=== PATIENT | male | born 1975 | race Hispanic/Latino ===

== ENCOUNTER 2017-01-15 14:24 | Emergency (ER) | payer MEDICAID ==
[2017-01-15 14:24] VITALS: BMI 29.0
[2017-01-15 14:56] VITALS: RESP 20
[2017-01-15] MEDS ORDERED: Sodium Chloride 0.9% 1,000 ML IV STA (15:59)
[2017-01-15 16:56] LABS: BASO # 0.1 K/uL (0.0-0.2); BASO % 1.3 % (0.0-2.0); EOS # 0.3 K/uL (0.0-0.7); EOS % 2.8 % (0.0-4.0); HEMATOCRIT 39.1 % (35.0-51.0); LYMPH # 2.3 K/uL (1.0-4.3); LYMPH % 23.2 % (20.0-40.0); MEAN CORPUSCULAR HGB CONC 34.1 g/dL (33.0-37.0); MEAN PLATELET VOLUME 8.3 fl (7.2-11.7); MONO # 0.6 K/uL (0.0-0.8); MONO % 6.5 % (0.0-10.0); NEUT # 6.5 K/uL (1.8-7.0); NEUT % 66.2 % (50.0-75.0); NRBC % 0.2 % (0.0-0.0); RED CELL DISTRIBUTION WIDTH 13.2 % (11.5-14.5); WHITE BLOOD COUNT 9.7 K/uL (4.8-10.8)
[2017-01-15 17:14] LABS: ALKALINE PHOSPHATASE 90 U/L (38-126); ALT/SGPT 25 U/L (21-72); AST/SGOT 19 U/L (17-59); BILIRUBIN,TOTAL 0.4 mg/dl (0.2-1.3); BLOOD UREA NITROGEN 17 mg/dl (9-20); CALCIUM 9.4 mg/dL (8.4-10.2); CARBON DIOXIDE 19 mmol/L (22-30); CHLORIDE 106 mmol/L (98-107); GFR AFRICAN-AMERICAN > 60; GLUCOSE,RANDOM 173 mg/dL (75-110); LIPASE 186 U/L (23-300); POTASSIUM 4.1 MMOL/L (3.6-5.0); SODIUM 142 mmol/l (132-148); TOTAL PROTEIN 8.2 G/DL (6.3-8.2)
--- NOTE | 2017-01-15 17:31 | CT ---
PROCEDURE: CT Abdomen and Pelvis without intravenous contrast HISTORY: groin pain COMPARISON: Comparison is made to the previous study dated 02/17/2014 TECHNIQUE: Axial and reformatted coronal and sagittal CT images of the abdomen and pelvis were obtained without IV or oral contrast administration.. Contrast Dose: 0 Radiation dose: Total exam DLP = 1349.56 mGy-cm. FINDINGS: LOWER THORAX: No evidence of acute pathology. LIVER: Re- demonstration of mild hepatomegaly and mild hepatic steatosis. GALLBLADDER AND BILE DUCTS: Status post cholecystectomy. PANCREAS: Unremarkable. No gross lesion or ductal dilatation. SPLEEN: Unremarkable. ADRENALS: Unremarkable. No mass. KIDNEYS AND URETERS: Unremarkable. No hydronephrosis. No solid mass. VASCULATURE: There is IVC filter in place. . No aortic aneurysm. BOWEL: The patient is status post prior gastric sleeve surgery. No evidence of bowel obstruction. APPENDIX: No evidence of appendicitis. The appendix is not clearly visualized. PERITONEUM: Unremarkable. No free fluid. No free air. LYMPH NODES: Again seen are prominent internal iliac lymph nodes more on the left. No evidence of lymphadenopathy. BLADDER: Mild urinary bladder wall thickening. REPRODUCTIVE: Unremarkable. BONES: No acute fracture. OTHER FINDINGS: None. IMPRESSION: No CT evidence of acute pathology in the abdomen and pelvis. No evidence of nephrolithiasis or hydronephrosis. No evidence of significant interval change compared to the previous exam.
--- NOTE | 2017-01-15 17:49 | US ---
HISTORY: pain, right TECHNIQUE: Realtime sonography through the scrotum with color and doppler flow. COMPARISON: None Available. FINDINGS: RIGHT TESTICLE: Measures 4.9 x 2.2 x 3.3 cm. Homogeneous echotexture. Blood flow is demonstrated. RIGHT EPIDIDYMIS: Measures approximately 1.1 x 0.7 x 0.6 cm. LEFT TESTICLE: Measures 4.6 x 2.3 x 3.6 cm. Homogeneous echotexture. Blood flow is demonstrated. LEFT EPIDIDYMIS: Measures approximately 1.0 x 0.4 x 0.5 cm. HYDROCELE: None. VARICOCELE: None. OTHER FINDINGS: None. IMPRESSION: No acute findings.
[2017-01-15 17:51] LABS: RBC URINE 4 /hpf (0-3); URINE BILIRUBIN NEGATIVE (NEGATIVE); URINE BLOOD MODERATE (NEGATIVE); URINE COLOR YELLOW (YELLOW); URINE GLUCOSE (UA) NEG (Normal); URINE KETONE NEGATIVE (NEGATIVE); URINE LEUKOCYTE ESTERASE NEG Leu/uL (Negative); URINE PROTEIN 100 mg/dL (NEGATIVE); URINE UROBILINOGEN 0.2-1.0 mg/dL (0.2-1.0); WBC URINE 1 /hpf (0-5)
--- NOTE | 2017-01-15 18:11 | ED PDOC ---
HPI: Male Pain Time Seen by Provider: 01/15/17 15:30 Chief Complaint (Nursing): Groin Pain Chief Complaint (Provider): Right Sided Testicular Pain/Abdominal Pain/Back Pain History Per: Patient History/Exam Limitations: no limitations Onset/Duration Of Symptoms: Days (x2) Current Symptoms Are (Timing): Still Present Associated Symptoms: Back Pain Additional Complaint(s): 15:30 Waqar Cid is a 41 year old male that presents to the ED with a chief complaint of right sided testicular pain with associated radiating suprapubic abdominal pain and back pain that he has been experiencing for the past two days. Patient denies any urinary complaints along with vomiting, diarrhea, or chest pain, and states that he has never has this type of problem before. He denies any trauma to the testicles or abdomen, and says that he does not think that his testicles are swollen. PMD: Jamie Davalos Past Medical History Reviewed: Historical Data, Nursing Documentation, Vital Signs Vital Signs: Last Vital Signs Temp 98.0 F 01/15/17 14:55 Pulse 83 01/15/17 14:55 Resp 20 01/15/17 14:55 BP 151/74 H 01/15/17 14:55 Pulse Ox 96 01/15/17 14:55 - Medical History PMH: Anxiety, Back Problems, Bipolar Disorder, Depression, Diabetes, Deep Vein Thrombosis (left leg), HTN, Pancreatitis, Schizophrenia Denies: Anemia, Crohn's Disease, Hepatitis, HIV, Chronic Kidney Disease, Seizures, Sexually Transmitted Disease - Surgical History Surgical History: Appendectomy (2014), Cholecystectomy, Coronary Stent (2011 s/ p [place]), Hernia Repair (umbilical) - Family History Family History: States: Unknown Family Hx, Diabetes - Immunization History Hx Tetanus Toxoid Vaccination: Yes (03/31/14) Hx Influenza Vaccination: No Hx Pneumococcal Vaccination: No - Home Medications Home Medications: Ambulatory Orders Medication Instructions Recorded ALPRAZolam [Xanax] 1 mg PO TID 11/26/15 Clonazepam [Klonopin] 0.5 mg PO TID 11/26/15 DiphenhydrAMINE [Benadryl] 50 mg PO QID PRN 11/26/15 [employer] Carbonate [[employer] 300 mg PO BID 11/26/15 Carbonate 300MG] Gabapentin [Neurontin] 600 mg PO TID #90 tab 12/01/15 Haloperidol [Haldol] 10 mg PO BID #60 tab 12/01/15 clonazePAM [Klonopin] 0.5 mg PO BID #14 tab 12/01/15 Ibuprofen [Motrin] 400 mg PO Q6 #30 tab 09/08/16 Naproxen 500 mg PO BID #20 tab 01/15/17 - Allergies Allergies/Adverse Reactions: Allergies Allergy/AdvReac Type Severity Reaction Status Date / Time iodine Allergy Mild ITCHING Verified 01/15/17 14:54 FISH Allergy SWELLING Verified 01/15/17 14:54 lorazepam [From Ativan] AdvReac DIZZINESS Verified 01/15/17 14:54 salmon Allergy Severe SWELLING Uncoded 12/13/15 16:04 Review of Systems Cardiovascular: Negative for: Chest Pain Gastrointestinal: Positive for: Abdominal Pain. Negative for: Nausea, Vomiting Genitourinary Male: Positive for: Other (right sided testicular pain). Negative for: Dysuria Musculoskeletal: Positive for: Back Pain Physical Exam - Reviewed Nursing Documentation Reviewed: Yes Vital Signs Reviewed: Yes - Physical Exam Appears: Positive for: Non-toxic, No Acute Distress (patient is obese) Head Exam: Positive for: ATRAUMATIC, NORMOCEPHALIC Skin: Positive for: Normal Color, Warm Eye Exam: Positive for: Normal appearance, EOMI Cardiovascular/Chest: Positive for: Regular Rate, Rhythm. Negative for: Murmur Respiratory: Positive for: Normal Breath Sounds. Negative for: Respiratory Distress Pulses-Femoral (L): 2+ Pulses-Femoral (R): 2+ Gastrointestinal/Abdominal: Positive for: Tenderness (right groin tenderness) Male Genital Exam: Positive for: normal genitalia, epididymal tenderness (right epididymus), testicular tenderness (R) (right upper testicle), other (no crepitus or evidence for scrotal infection ). Negative for: erythema, inguinal tenderness, scrotum tenderness (R), scrotum tenderness (L), testicular tenderness (L) Back: Positive for: Normal Inspection Extremity: Positive for: Deformity (chronic deformity to left foot) Neurologic/Psych: Positive for: Alert, Oriented - Laboratory Results Result Diagrams: 01/15/17 16:20 01/15/17 16:20 - ECG O2 Sat by Pulse Oximetry: 96 (RA) Pulse Ox Interpretation: Normal Medical Decision Making Medical Decision Makin:55 Initial Impression: Right Sided Testicular Pain Initial Plan: * Urine Culture * Sodium Chloride 1000 mL at 1000 mLs/hr * Morphine 4 mg IVP * Toradol 30 mg IVP * Zofran 4 mg IVP * Reevaluation Scribe Attestation: Documented by Roxy Diaz, acting as a scribe for Angelito Dupont PA-C. Provider Scribe Attestation: All medical record entries made by the Scribe were at my direction and personally dictated by me. I have reviewed the chart and agree that the record accurately reflects my personal performance of the history, physical exam, medical decision making, and the department course for this patient. I have also personally directed, reviewed, and agree with the discharge instructions and disposition. labs with no acute finding glucose 174 hx of DM UA negative infection, (+) blood CT- IMPRESSION: No CT evidence of acute pathology in the abdomen and pelvis. No evidence of nephrolithiasis or hydronephrosis. No evidence of significant interval change compared to the previous exam US- IMPRESSION: No acute findings. discussed CT, US and lab results with patient. pain did improve discussed evaluation by urology for further evaluation discussed to check his groin- currently with no evidence of groin infection, but discussed that given DM he could be getting one and to make sure he continues to check for any scrotum swelling or redness. discussed with patient NSIAD use, no opiate pain medications for discharge given hx, he agrees. Disposition - Clinical Impression Clinical Impression: Groin pain, Testicular pain, Hematuria - Patient ED Disposition Is Patient to be Admitted: No Counseled Patient/Family Regarding: Studies Performed, Diagnosis, Need For Followup, Rx Given - Disposition Referrals: Uziel Meyer MD [Medical Doctor] - Disposition: Routine/Home Disposition Time: 19:10 Condition: IMPROVED Additional Instructions: follow up without fail for re-evaluation with urology continue to check your genital area and return for swelling, redness, masses to the groin or any new concerns Prescriptions: Naproxen 500 mg PO BID #20 tab Instructions: Groin Pain (ED), Testicle Pain (ED), Acute Hematuria (ED)
[2017-01-15 19:17] VITALS: BP 128/78; PULSE 78; TEMP 97.7
[2017-01-15 19:20] VITALS: O2SAT 96
== END 2017-01-15 19:17 | disposition home or self-care (01) ==
LOC: H.ER 14:24
DX: N50.82 Scrotal pain (principal); R31.9 Hematuria, unspecified

== ENCOUNTER 2017-03-26 17:19 | Emergency (ER) | payer MEDICAID ==
[2017-03-26 17:19] VITALS: BMI 29.0
[2017-03-26 17:23] VITALS: BP 151/87; PULSE 102; RESP 18; TEMP 98.5; O2SAT 100
--- NOTE | 2017-03-26 18:49 | ED PDOC ---
Lower Extremity Pain/Injury Time Seen by Provider: 03/26/17 17:58 Chief Complaint (Nursing): Lower Extremity Problem/Injury Chief Complaint (Provider): left leg pain History Per: Patient Additional Complaint(s): 41-year-old male with history of diabetes and bipolar disorder presents to emergency department complaining of swelling and pain to left leg that started 2 days ago. Patient states he has chronic pain to left knee which has been hurting moreso for the past 2 days but his main concern is persistent swelling and pain to left foot and ankle region. Patient denies injury or trauma. He has not been taking any medicine for pain relief. He describes the pain as a pins and needles sensation in foot. Patient rates current pain as a 10 out of 10. He has history of osteomyelitis to same foot. No associated chest pain, shortness of breath or dyspnea on exertion. Past Medical History Reviewed: Historical Data, Nursing Documentation, Vital Signs Vital Signs: Last Vital Signs Temp 98.5 F 03/26/17 17:21 Pulse 102 H 03/26/17 17:21 Resp 18 03/26/17 17:21 BP 151/87 H 03/26/17 17:21 Pulse Ox 100 03/26/17 17:21 - Medical History PMH: Anxiety, Back Problems, Bipolar Disorder, Depression, Diabetes, Deep Vein Thrombosis, HTN, Schizophrenia - Surgical History Surgical History: Appendectomy (2014), Cholecystectomy, Coronary Stent (2011 s/ p [place]), Hernia Repair (umbilical) Other surgeries: left foot surgery - Family History Family History: States: No Known Family Hx, Diabetes - Living Arrangements Living Arrangements: With Family - Social History Current smoker - smoking cessation education provided: No Alcohol: None Drugs: Denies - Immunization History Hx Tetanus Toxoid Vaccination: Yes (03/31/14) - Home Medications Home Medications: Ambulatory Orders Medication Instructions Recorded ALPRAZolam [Xanax] 1 mg PO TID 11/26/15 Clonazepam [Klonopin] 0.5 mg PO TID 11/26/15 DiphenhydrAMINE [Benadryl] 50 mg PO QID PRN 11/26/15 [employer] Carbonate [[employer] 300 mg PO BID 11/26/15 Carbonate 300MG] Gabapentin [Neurontin] 600 mg PO TID #90 tab 12/01/15 Haloperidol [Haldol] 10 mg PO BID #60 tab 12/01/15 clonazePAM [Klonopin] 0.5 mg PO BID #14 tab 12/01/15 Ibuprofen [Motrin] 400 mg PO Q6 #30 tab 09/08/16 Naproxen 500 mg PO BID #20 tab 01/15/17 Clindamycin [Cleocin] 300 mg PO TID #21 cap 03/26/17 Ibuprofen [Motrin] 600 mg PO Q6 PRN #15 tab 03/26/17 traMADol [Ultram] 50 mg PO TID PRN #15 tab 03/26/17 - Allergies Allergies/Adverse Reactions: Allergies Allergy/AdvReac Type Severity Reaction Status Date / Time iodine Allergy Mild ITCHING Verified 01/15/17 14:54 FISH Allergy SWELLING Verified 01/15/17 14:54 lorazepam [From Ativan] AdvReac DIZZINESS Verified 01/15/17 14:54 salmon Allergy Severe SWELLING Uncoded 12/13/15 16:04 Wells Criteria for PE - Wells Criteria for Pulmonary Embolism Clinical Signs and Symptoms of DVT: Yes P.E is #1 Diagnosis, or Equally Likely: No Heart Rate >100: No Immobilization at least 3 days;Surgery previous 4 weeks: No Previous, objectively diagnosed PE or DVT: No Hemoptysis: No Malignancy w/treatment within 6 months, or palliative: No Total Score: 3 Review of Systems ROS Statement: Except As Marked, All Systems Reviewed And Found Negative Constitutional: Negative for: Fever, Chills Cardiovascular: Negative for: Chest Pain Respiratory: Negative for: Cough Gastrointestinal: Negative for: Nausea, Vomiting Musculoskeletal: Positive for: Foot Pain (left foot pain and swelling) Physical Exam - Reviewed Nursing Documentation Reviewed: Yes Vital Signs Reviewed: Yes - Physical Exam Appears: Positive for: Well, Non-toxic, No Acute Distress Skin: Negative for: Rash Eye Exam: Positive for: Normal appearance Cardiovascular/Chest: Positive for: Regular Rate, Rhythm Respiratory: Positive for: Normal Breath Sounds. Negative for: Respiratory Distress Extremity: Positive for: Other (chronic deformity to toes of left foot, diffuse erythema, swelling and tenderness to left foot and ankle region with mild warmth to palpation, mild swelling and tenderness to left calf also noted, full range of motion of left knee with pain, effusion noted to left suprapatellar region, no warmth or erythema to left knee region) Neurologic/Psych: Positive for: Alert, Oriented - Laboratory Results Result Diagrams: 03/26/17 19:18 06/02/17 19:18 - ECG O2 Sat by Pulse Oximetry: 100 Pulse Ox Interpretation: Normal - Other Rad Doppler leg left X-Ray: Read By Radiologist X-Ray Interpretation: see below X-rays left foot and ankle X-Ray: Interpreted by Me, Viewed By Me X-Ray Interpretation: osteopenia, no acute fx or dis, degenerative changes Medical Decision Making Medical Decision Makin41 year old with left leg pain Plan: IV insertion CBC CMP X-ray left foot, ankle and tib/fib Doppler left leg PO tramadol and motrin for pain Podiatry consult US: FINDINGS: Deep veins:Common femoral, superficial femoral, popliteal and posterior tibial veins were evaluated. All veins examined are compressible.There are no intraluminal filling defects.There is expected blood flow on Doppler imaging.There is change in waveform with augmentation. Soft tissues: There is a complex fluid collection at the left knee in the area of swelling. This measures approximately 6.2 x 1.7 cm. Impression: No deep venous thrombosis in the visualized vascular segments of the left lower extremity; complex fluid collection at the area of swelling. Previous records reviewed. Patient has known chronic effusion to left knee as seen on previous imaging studies. He was referred to ortho orthodontic band maker for further evaluation of ongoing knee pain. Patient see by podiatry resident at bedside. As per resident, Dr. Marx, patient will be discharged with rx clindaycin to treat foot and ankle cellulitis. Rx also given for motrin and tramadol for pain control. Patient was instructed to follow up with Dr. Sheth next week in office. Patient is also aware he can RTED at any time if acutely worse. LFT's elevated, patient is s/p cholecystectomy 2 years ago. He denies any abd pain, nausea, vomiting, diarrhea or constipation. Abdominal exam is benign in ED. Patient instructed to follow up with PMD for repeat labs in 1 week. Disposition - Clinical Impression Clinical Impression: Chronic knee pain, Cellulitis of foot - Patient ED Disposition Is Patient to be Admitted: No Counseled Patient/Family Regarding: Studies Performed, Diagnosis, Need For Followup, Rx Given - Disposition Referrals: Rell Sheth DPM [[facility]] - Disposition: Routine/Home Disposition Time: 21:02 Condition: STABLE Additional Instructions: Elevate left leg as much as possible. Take prescription meds as directed. Follow -up with Dr. Sheth in 2-3 days. Follow-up with orthopedist as soon as possible for further evaluation of ongoing knee pain. Prescriptions: Clindamycin [Cleocin] 300 mg PO TID #21 cap Ibuprofen [Motrin] 600 mg PO Q6 PRN #15 tab PRN Reason: Pain, Moderate (4-7) traMADol [Ultram] 50 mg PO TID PRN #15 tab PRN Reason: Pain, Moderate (4-7) Instructions: Cellulitis (ED), Knee Pain (ED) Results - Lab Results Lab Results: 03/26/17 03/26/17 19:18 19:18 WBC 11.4 H RBC 4.10 L Hgb 11.9 L Hct 36.2 MCV 88.5 MCH 29.1 MCHC 32.9 L RDW 13.6 Plt Count 290 MPV 8.1 Neut % (Auto) 71.9 Lymph % (Auto) 14.8 L [place] % (Auto) 9.9 Eos % (Auto) 2.6 Baso % (Auto) 0.8 Neut # 8.2 H Lymph # 1.7 [place] # 1.1 H Eos # 0.3 Baso # 0.1 Sodium 137 Potassium 4.1 Chloride 103 Carbon Dioxide 22 Anion Gap 16 BUN 15 Creatinine 1.4 Est GFR ( Amer) > 60 Est GFR (Non-Af Amer) 56 Random Glucose 249 H Calcium 9.8 Total Bilirubin 0.7 AST 82 H D ALT 86 H D Alkaline Phosphatase 178 H D Total Protein 8.5 H Albumin 4.0 Globulin 4.5 H Albumin/Globulin Ratio 0.9 L
[2017-03-26 19:29] LABS: BASO # 0.1 K/uL (0.0-0.2); BASO % 0.8 % (0.0-2.0); EOS # 0.3 K/uL (0.0-0.7); EOS % 2.6 % (0.0-4.0); HEMATOCRIT 36.2 % (35.0-51.0); LYMPH # 1.7 K/uL (1.0-4.3); LYMPH % 14.8 % (20.0-40.0); MEAN CELL VOLUME 88.5 fl (80.0-94.0); MEAN CORPUSCULAR HEMOGLOBIN 29.1 pg (27.0-31.0); MEAN CORPUSCULAR HGB CONC 32.9 g/dL (33.0-37.0); MEAN PLATELET VOLUME 8.1 fl (7.2-11.7); MONO # 1.1 K/uL (0.0-0.8); MONO % 9.9 % (0.0-10.0); NEUT # 8.2 K/uL (1.8-7.0); NEUT % 71.9 % (50.0-75.0); NRBC % 0.1 % (0.0-0.0); RED CELL DISTRIBUTION WIDTH 13.6 % (11.5-14.5); WHITE BLOOD COUNT 11.4 K/uL (4.8-10.8)
[2017-03-26 19:48] LABS: ALB/GLOB RATIO 0.9 (1.0-2.1); ALKALINE PHOSPHATASE 178 U/L (38-126); ALT/SGPT 86 U/L (21-72); AST/SGOT 82 U/L (17-59); BILIRUBIN,TOTAL 0.7 mg/dl (0.2-1.3); BLOOD UREA NITROGEN 15 mg/dl (9-20); CALCIUM 9.8 mg/dL (8.4-10.2); CARBON DIOXIDE 22 mmol/L (22-30); CHLORIDE 103 mmol/L (98-107); GFR AFRICAN-AMERICAN > 60; GLUCOSE,RANDOM 249 mg/dL (75-110); POTASSIUM 4.1 MMOL/L (3.6-5.0); SODIUM 137 mmol/l (132-148); TOTAL PROTEIN 8.5 G/DL (6.3-8.2)
--- NOTE | 2017-03-26 20:39 | US ---
EXAM: US Duplex Left Lower Extremity Veins CLINICAL HISTORY: 41 years old, male; Signs and symptoms; Swelling of limb; Lower extremity, left; Additional info: Pain, swelling left leg TECHNIQUE: Real-time ultrasound scan of the veins of the left lower extremity with color Doppler flow, spectral waveform analysis and compression. EXAM DATE/TIME: 03/26/2017 6:47 PM COMPARISON: Prior images are not available for review. FINDINGS: Deep veins:Common femoral, superficial femoral, popliteal and posterior tibial veins were evaluated. All veins examined are compressible.There are no intraluminal filling defects.There is expected blood flow on Doppler imaging.There is change in waveform with augmentation. Soft tissues: There is a complex fluid collection at the left knee in the area of swelling. This measures approximately 6.2 x 1.7 cm. Impression: No deep venous thrombosis in the visualized vascular segments of the left lower extremity; complex fluid collection at the area of swelling.
--- NOTE | 2017-03-26 20:44 | CP.PCM.CON ---
History of Present Illness - History of Present Illness History of Present Illness: 41 year old male with PMHx of DMII and bipolar disorder, presenting to the ED with a chief complaint of left foot pain and swelling which started two days ago. He is a patient of Dr. Sheth. Pt has had several left foot surgeries in the past to remove bone. He denies any recent trauma to the area, denies any current or recent open wounds. Patient denies n/v/f, reports experiencing some chills. Patient also reports pain to bilateral knees. Past Patient History - Infectious Disease Hx of Infectious Diseases: None - Past Medical History & Family History Past Medical History?: Yes - Past Social History Alcohol: None Drugs: Denies - CARDIAC Hx Hypertension: Yes - PULMONARY Hx Tuberculosis: No - NEUROLOGICAL Hx Seizures: No - HEENT Hx HEENT Problems: No - RENAL Hx Chronic Kidney Disease: No - ENDOCRINE/METABOLIC Hx Endocrine Disorders: No Hx Diabetes Mellitus Type 1: No Hx Diabetes Mellitus Type 2: No - HEMATOLOGICAL/ONCOLOGICAL Hx Anemia: No Hx Human Immunodeficiency Virus (HIV): No - INTEGUMENTARY Hx Dermatological Problems: No Hx Cellulitis: No - MUSCULOSKELETAL/RHEUMATOLOGICAL Hx Musculoskeletal Disorders: Yes Hx Falls: No Hx Osteomyelitis: Yes (left foot) - GASTROINTESTINAL Hx Crohn's Disease: No Hx Pancreatitis: Yes - GENITOURINARY/GYNECOLOGICAL Hx Sexually Transmitted Disorders: No - PSYCHIATRIC Hx Anxiety: Yes Hx Bipolar Disorder: Yes Hx Depression: Yes Hx Schizophrenia: Yes - SURGICAL HISTORY Hx Appendectomy: Yes (2014) Hx Cholecystectomy: Yes Hx Coronary Stent: Yes (2011 s/p [place]) - ANESTHESIA Hx Anesthesia: Yes Hx Anesthesia Reactions: No Hx Malignant Hyperthermia: No Meds Allergies/Adverse Reactions: Allergies Allergy/AdvReac Type Severity Reaction Status Date / Time iodine Allergy Mild ITCHING Verified 01/15/17 14:54 FISH Allergy SWELLING Verified 01/15/17 14:54 lorazepam [From Ativan] AdvReac DIZZINESS Verified 01/15/17 14:54 salmon Allergy Severe SWELLING Uncoded 12/13/15 16:04 Physical Exam - Constitutional Appears: Well, Non-toxic, No Acute Distress - Neurological Exam Neurological exam: Oriented x3 - Psychiatric Exam Psychiatric exam: Normal Affect, Normal Mood - Additional Findings Additional findings: DERMATOLOGIC: Skin is intact, no open lesions or rashes. There are well healed scars from previous surgical incisions. There is mild diffuse erythema of the left foot at the forefoot area. Does not extend proximally. There is no drainage. VASCULAR: DP/PT pulses non palpable secondary to edema. There is localized edema to the left forefoot as well as diffuse edema of the left lower extremity. Skin temperature is mildly increased. NEUROLOGIC: Gross sensation intact, motor function intact ORTHOPEDIC: Pain on palpation to the left foot. Pain on palpation to bilateral knees. Patient has digital deformities on the left foot Results - Vital Signs Recent Vital Signs: Last Vital Signs Temp 98.5 F 03/26/17 17:21 Pulse 102 H 03/26/17 17:21 Resp 18 03/26/17 17:21 BP 151/87 H 03/26/17 17:21 Pulse Ox 100 03/26/17 18:51 - Labs Result Diagrams: 03/26/17 19:18 03/26/17 19:18 Labs: Laboratory Results - last 24 hr 03/26/17 03/26/17 19:18 19:18 WBC 11.4 H RBC 4.10 L Hgb 11.9 L Hct 36.2 MCV 88.5 MCH 29.1 MCHC 32.9 L RDW 13.6 Plt Count 290 MPV 8.1 Neut % (Auto) 71.9 Lymph % (Auto) 14.8 L [place] % (Auto) 9.9 Eos % (Auto) 2.6 Baso % (Auto) 0.8 Neut # 8.2 H Lymph # 1.7 [place] # 1.1 H Eos # 0.3 Baso # 0.1 Sodium 137 Potassium 4.1 Chloride 103 Carbon Dioxide 22 Anion Gap 16 BUN 15 Creatinine 1.4 Est GFR ( Amer) > 60 Est GFR (Non-Af Amer) 56 Random Glucose 249 H Calcium 9.8 Total Bilirubin 0.7 AST 82 H D ALT 86 H D Alkaline Phosphatase 178 H D Total Protein 8.5 H Albumin 4.0 Globulin 4.5 H Albumin/Globulin Ratio 0.9 L Assessment & Plan - Assessment and Plan (Free Text) Assessment: 41 year old diabetic male with left lower extremity cellulitis. Plan: Patient seen and evaluated, d/w attending Dr. Sheth Patients x-rays and labs reviewed Pt given Clindamycin PO as well as pain medication from ED Patient to monitor progression of cellulitis and to f/u with Dr. Sheth within the next few days
--- NOTE | 2017-03-27 10:50 | RAD ---
Tibia fibula (left) History: Pain. Technique: Proximal left tibia and fibula are images were obtained. Findings: No evidence of fracture. Impression: No evidence of fracture in the visualized aspects of the left tibia and fibula. Repeat evaluation with optimal views recommended.
--- NOTE | 2017-03-27 10:57 | RAD ---
PROCEDURE: Left Foot Radiographs. HISTORY: Pain. COMPARISON: 01/19/2015 FINDINGS: BONES: Osteotomies of the 2nd and 3rd metatarsals. Hammertoe deformities of the right 2nd through 5th digits. Hallux valgus. JOINTS: Degenerative changes of the midfoot. SOFT TISSUES: Generalized soft tissue swelling. OTHER FINDINGS: Osteopenia. IMPRESSION: Findings as above. No significant interval change.
--- NOTE | 2017-03-27 11:32 | RAD ---
Left ankle History: Pain. None. Findings: Three views the left ankle demonstrate no evidence of fracture. Partially visualized postsurgical changes of the 2nd and 3rd metatarsals. Generalized osteopenia. Generalized soft tissue swelling. Ankle mortise appears intact. Degenerative changes of the hindfoot. Calcaneal spurring. Impression: No acute fractures. Generalized osteopenia. Other findings as above.
== END 2017-03-26 21:27 | disposition home or self-care (01) ==
LOC: H.ER 17:19
DX: M79.672 Pain in left foot (principal); L03.116 Cellulitis of left lower limb; E11.9 Type 2 diabetes mellitus without complications; F20.9 Schizophrenia, unspecified; F31.9 Bipolar disorder, unspecified; F41.9 Anxiety disorder, unspecified; G89.29 Other chronic pain; I10 Essential (primary) hypertension; I25.2 Old myocardial infarction; M85.80 Other specified disorders of bone density and structure, unspecified site; Z86.718 Personal history of other venous thrombosis and embolism; Z95.5 Presence of coronary angioplasty implant and graft

== ENCOUNTER 2018-07-04 17:23 | Emergency (ER) | payer MEDICAID ==
[2018-07-04 17:24] VITALS: BMI 29.0
[2018-07-04 17:33] VITALS: O2SAT 99
[2018-07-04] MEDS ORDERED: Sodium Chloride 0.9% 1,000 ML IV STA (18:22)
[2018-07-04] MEDS ORDERED: Morphine 4 MG/ML VIAL ONE (18:41)
[2018-07-04 18:42] LABS: BASO # 0.1 K/uL (0.0-0.2); BASO % 1.2 % (0.0-2.0); EOS # 0.4 K/uL (0.0-0.7); EOS % 3.7 % (0.0-4.0); HEMOGLOBIN 13.2 g/dL (12.0-18.0); LYMPH % 25.1 % (20.0-40.0); MEAN CELL VOLUME 88.8 fl (80.0-94.0); MEAN CORPUSCULAR HEMOGLOBIN 30.5 pg (27.0-31.0); MEAN CORPUSCULAR HGB CONC 34.3 g/dL (33.0-37.0); MEAN PLATELET VOLUME 8.4 fl (7.2-11.7); MONO # 0.7 K/uL (0.0-0.8); MONO % 5.9 % (0.0-10.0); NEUT # 7.6 K/uL (1.8-7.0); NEUT % 64.1 % (50.0-75.0); NRBC % 0.1 % (0.0-0.0); RBC 4.32 Mil/uL (4.40-5.90); RED CELL DISTRIBUTION WIDTH 14.1 % (11.5-14.5); WHITE BLOOD COUNT 11.8 K/uL (4.8-10.8)
[2018-07-04] MEDS ORDERED: Iohexol 240 (50 ml) PO STA (18:43)
[2018-07-04 18:44] LABS: VENOUS BLOOD GAS PCO2 37 mmHg (40-60); VENOUS BLOOD GAS PO2 38 mm/Hg (30-55); VENOUS BLOOD PH 7.31 (7.32-7.43)
[2018-07-04 18:48] LABS: PROTHROMBIN TIME 11.2 Seconds (9.8-13.1)
--- NOTE | 2018-07-04 18:48 | RAD ---
HISTORY: possible admission COMPARISON: Chest x-ray performed 01/17/15 TECHNIQUE: Chest, one view. FINDINGS: Examination limited by habitus and hypoinflation. LUNGS: The right costophrenic angles excluded from view. No focal consolidation. Please note that chest x-ray has limited sensitivity for the detection of pulmonary masses. PLEURA: No significant pleural effusion identified. No definite pneumothorax . CARDIOVASCULAR: Heart size appears top normal. OSSEOUS STRUCTURES: Degenerative changes of the spine. VISUALIZED UPPER ABDOMEN: Unremarkable. OTHER FINDINGS: None. IMPRESSION: Examination limited by habitus and hypoinflation. Additionally, the right costophrenic angle is excluded from view. No focal consolidation identified.
[2018-07-04 18:51] LABS: PARTIAL THROMBOPLASTIN TIME 31.8 Seconds (25.6-37.1)
[2018-07-04 19:10] LABS: ALBUMIN 3.7 g/dL (3.5-5.0); ALT/SGPT 28 U/L (21-72); AST/SGOT 18 U/L (17-59); BLOOD UREA NITROGEN 16 mg/dl (9-20); CALCIUM 9.4 mg/dL (8.4-10.2); GFR NON-AFRICAN AMERICAN > 60; LIPASE 365 U/L (23-300)
--- NOTE | 2018-07-04 19:42 | ED PDOC ---
- Laboratory Results Result Diagrams: 07/04/18 18:24 07/04/18 18:24 - ECG O2 Sat by Pulse Oximetry: 99 (RA) Pulse Ox Interpretation: Normal - Progress Re-evaluation Time: 21:58 Condition: Re-examined, Improved Medical Decision Making Medical Decision Making: Time: 1899 --Patient signed out to this provider by Dr. oHlley, pending labs and CT Abdomen. 21:32 CT abd/pelvis FINDINGS: Lower thorax: No acute findings. ABDOMEN: Liver: Hepatomegaly. Gallbladder and bile ducts: Cholecystectomy clips. Pancreas: Normal. No ductal dilation. Spleen: Mild splenomegaly. Adrenals: 1.6 cm left adrenal nodule. Kidneys and ureters: Symmetric enhancement. No hydronephrosis. Stomach and bowel: Status post prior gastric surgery. Bowel anastomosis noted in the right upper quadrant. Oral contrast reaches the small bowel. Scattered diverticulosis of the colon. No evidence of diverticulitis. No mucosal thickening. Appendix: No evidence of appendicitis. PELVIS: Bladder: Urinary bladder is partially contracted with apparent wall thickening, probably exaggerated by under distention. Correlate for possible cystitis. Reproductive: See Bladder Finding. ABDOMEN and PELVIS: Intraperitoneal space: Normal. No free air. No drainable fluid collection. Bones/joints: No displaced fracture. Soft tissues: Small fat containing supraumbilical hernias. Vasculature: Atherosclerotic calcifications of the aorta. IVC filter, unchanged in position since the prior exam. Correlate clinically. Lymph nodes: Normal. No enlarged lymph nodes. IMPRESSION: 1. Urinary bladder is partially contracted with apparent wall thickening, probably exaggerated by under distention. Correlate for possible cystitis. 2. Mild splenomegaly. 3. Hepatomegaly. The remainder of the findings are as described above Scribe Attestation: Documented by Ewelina Rosado and David Rosado, acting as a scribe for Antonio Quinteros MD Provider Scribe Attestation: All medical record entries made by the Scribe were at my direction and personally dictated by me. I have reviewed the chart and agree that the record accurately reflects my personal performance of the history, physical exam, medical decision making, and the department course for this patient. I have also personally directed, reviewed, and agree with the discharge instructions and disposition. Disposition Doctor Will See Patient In The: Office Counseled Patient/Family Regarding: Studies Performed, Diagnosis, Need For Followup - Clinical Impression Clinical Impression: Abdominal pain, Cystitis - POA Present On Arrival: None - Disposition Disposition: Routine/Home Disposition Time: 21:59 Condition: GOOD Additional Instructions: ANA BARGER, thank you for letting us take care of you today. Your provider was Antonio Quinteros MD and you were treated for ABD PAIN. The emergency medical care you received today was directed at your acute symptoms. If you were prescribed any medication, please fill it and take as directed. It may take several days for your symptoms to resolve. Return to the Emergency Department if your symptoms worsen, do not improve, or if you have any other problems. Please contact your doctor or call one of the physicians/clinics you have been referred to that are listed on the Patient Visit Information form that is included in your discharge packet. Bring any paperwork you were given at discharge with you along with any medications you are taking to your follow up visit. Our treatment cannot replace ongoing medical care by a primary care provider outside of the emergency department. Thank you for allowing the [facility] team to be part of your care today. If you had an X-Ray or CT scan: A Radiologist will review the ED reading if any change in treatment is needed we will contact you. If you had a blood, urine, or wound culture: It will take several days for the results, if any change in treatment is needed we will contact you. If you had an STI test: It will take 48 hours for the results. Please call after 1 week if you have not heard back. Prescriptions: Nitrofurantoin Macrocrystals [Macrobid] 100 mg PO BID #14 cap Phenazopyridine HCl [Pyridium] 100 mg PO TID #9 tablet Instructions: Acute Cystitis (DC)
[2018-07-04] MEDS ORDERED: Sodium Chloride 0.9% 50 ML IV ONE (20:17)
[2018-07-04] MEDS ORDERED: Iohexol 300 100 ML IJ ONE (20:17)
[2018-07-04 20:26] LABS: URINE BILIRUBIN NEGATIVE (NEGATIVE); URINE BLOOD SMALL (NEGATIVE); URINE CLARITY CLEAR (Clear); URINE COLOR STRAW (YELLOW); URINE GLUCOSE (UA) NEG (Normal); URINE LEUKOCYTE ESTERASE NEG Leu/uL (Negative); URINE PROTEIN 30 mg/dL (NEGATIVE); URINE UROBILINOGEN 0.2-1.0 mg/dL (0.2-1.0)
--- NOTE | 2018-07-04 20:49 | ED PDOC ---
HPI: Abdomen Time Seen by Provider: 07/04/18 18:03 Chief Complaint (Nursing): Abdominal Pain Chief Complaint (Provider): Abdominal Pain History Per: Patient History/Exam Limitations: no limitations Onset/Duration Of Symptoms: Days (x2) Associated Symptoms: Nausea, Vomiting, Urinary Symptoms (dysuria) Additional Complaint(s): 43 year old male with a history of dm and hypertension presents to the ED for lower abdominal pain onset yesterday. Patient had surgery for an umbilical hernia, IVC filter placed due to right dvt, previous osteomyelitis of right vein. Patient has had nausea, vomiting and dysuria for x2 days. He denies diarrhea constipation, bloody or bile in vomit or any other medical complaints. Patient is able to tolerate PO. He is accompanied by his brother and his sister is an employee in this ED. PMD: Dr. Hough in [place] Medications: metformin, lithium, patient is unable to recall all of his medications at this time Past Medical History Reviewed: Historical Data, Nursing Documentation, Vital Signs Vital Signs: Last Vital Signs Temp 98.5 F 07/04/18 22:00 Pulse 79 07/04/18 22:00 Resp 16 07/04/18 22:00 BP 131/74 07/04/18 22:00 Pulse Ox 99 07/04/18 22:01 - Medical History PMH: Anxiety, Back Problems, Bipolar Disorder, Depression, Diabetes, Deep Vein Thrombosis, HTN, Pancreatitis, Schizophrenia Denies: Anemia, Crohn's Disease, Hepatitis, HIV, Chronic Kidney Disease, Seizures, Sexually Transmitted Disease - Surgical History Surgical History: Appendectomy (2014), Cholecystectomy, Coronary Stent (2011 s/ p PR), Hernia Repair (umbilical) - Family History Family History: States: Unknown Family Hx, Diabetes - Social History Current smoker - smoking cessation education provided: Yes (occasionally) - Immunization History Hx Tetanus Toxoid Vaccination: Yes (03/31/14) Hx Influenza Vaccination: No Hx Pneumococcal Vaccination: No - Home Medications Home Medications: Ambulatory Orders Medication Instructions Recorded ALPRAZolam [Xanax] 1 mg PO TID 11/26/15 Clonazepam [Klonopin] 0.5 mg PO TID 11/26/15 DiphenhydrAMINE [Benadryl] 50 mg PO QID PRN 11/26/15 [place] Carbonate [[place] 300 mg PO BID 11/26/15 Carbonate 300MG] Gabapentin [Neurontin] 600 mg PO TID #90 tab 12/01/15 Haloperidol [Haldol] 10 mg PO BID #60 tab 12/01/15 clonazePAM [Klonopin] 0.5 mg PO BID #14 tab 12/01/15 Ibuprofen [Motrin] 400 mg PO Q6 #30 tab 09/08/16 Naproxen 500 mg PO BID #20 tab 01/15/17 Clindamycin [Cleocin] 300 mg PO TID #21 cap 03/26/17 Ibuprofen [Motrin] 600 mg PO Q6 PRN #15 tab 03/26/17 traMADol [Ultram] 50 mg PO TID PRN #15 tab 03/26/17 Ibuprofen [Motrin] 600 mg PO TID PRN #20 tab 07/04/18 Nitrofurantoin Macrocrystals 100 mg PO BID #14 cap 07/04/18 [Macrobid] Phenazopyridine HCl [Pyridium] 100 mg PO TID #9 tablet 07/04/18 - Allergies Allergies/Adverse Reactions: Allergies Allergy/AdvReac Type Severity Reaction Status Date / Time iodine Allergy Mild ITCHING Verified 07/04/18 17:31 FISH Allergy SWELLING Verified 07/04/18 17:31 lorazepam [From Ativan] AdvReac DIZZINESS Verified 07/04/18 17:31 salmon Allergy Severe SWELLING Uncoded 12/13/15 16:04 Review of Systems ROS Statement: Except As Marked, All Systems Reviewed And Found Negative Gastrointestinal: Positive for: Nausea, Vomiting Genitourinary Male: Positive for: Dysuria Physical Exam - Reviewed Nursing Documentation Reviewed: Yes Vital Signs Reviewed: Yes - Physical Exam Appears: Positive for: Well, No Acute Distress Skin: Positive for: Warm, Dry Cardiovascular/Chest: Positive for: Regular Rate, Rhythm. Negative for: Murmur Respiratory: Positive for: Normal Breath Sounds. Negative for: Respiratory Distress Gastrointestinal/Abdominal: Positive for: Soft (obese), Tenderness (Right suprapubic and left lower quadrant ) Extremity: Negative for: Swelling - Laboratory Results Result Diagrams: 07/04/18 18:24 07/04/18 18:24 - ECG O2 Sat by Pulse Oximetry: 99 (RA) Medical Decision Making Medical Decision Making: Time: 1818 Workup for lower abdominal pain Plan: --labs --UA --Rule out obstruction due to previous abdominal surgery history --CT abdomen and pelvis with PO and IV contrast --Morphine for pain control --IV fluids --Reassessment Time: 1899 --Patient signed out to Dr. Quinteros Scribe Attestation: Documented by Ewelina Rosado, acting as a scribe for Kimmy Holley MD Provider Scribe Attestation: All medical record entries made by the Scribe were at my direction and personally dictated by me. I have reviewed the chart and agree that the record accurately reflects my personal performance of the history, physical exam, medical decision making, and the department course for this patient. I have also personally directed, reviewed, and agree with the discharge instructions and disposition. Disposition - Clinical Impression Clinical Impression: Abdominal pain, Cystitis - Disposition Referrals: Tony Fuchs MD [Medical Doctor] - Disposition: Transfer of Care Disposition Time: 19:00 Condition: STABLE Additional Instructions: ANA BARGER, thank you for letting us take care of you today. Your provider was Antonio Quinteros MD and you were treated for ABD PAIN. The emergency medical care you received today was directed at your acute symptoms. If you were prescribed any medication, please fill it and take as directed. It may take several days for your symptoms to resolve. Return to the Emergency Department if your symptoms worsen, do not improve, or if you have any other problems. Please contact your doctor or call one of the physicians/clinics you have been referred to that are listed on the Patient Visit Information form that is included in your discharge packet. Bring any paperwork you were given at discharge with you along with any medications you are taking to your follow up visit. Our treatment cannot replace ongoing medical care by a primary care provider outside of the emergency department. Thank you for allowing the [facility] team to be part of your care today. If you had an X-Ray or CT scan: A Radiologist will review the ED reading if any change in treatment is needed we will contact you. If you had a blood, urine, or wound culture: It will take several days for the results, if any change in treatment is needed we will contact you. If you had an STI test: It will take 48 hours for the results. Please call after 1 week if you have not heard back. Prescriptions: Ibuprofen [Motrin] 600 mg PO TID PRN #20 tab PRN Reason: Pain, Moderate (4-7) Nitrofurantoin Macrocrystals [Macrobid] 100 mg PO BID #14 cap Phenazopyridine HCl [Pyridium] 100 mg PO TID #9 tablet Instructions: Acute Cystitis (DC)
[2018-07-04 23:11] VITALS: BP 131/74; PULSE 79; RESP 16; TEMP 98.5
--- NOTE | 2018-07-05 07:33 | CARD ---
APPROVED REPORT Date of service: 07/04/2018 EKG Measurement Heart [id number] <Conclusion> Normal sinus rhythm Left axis deviation Cannot rule out Anterior infarct, age undetermined Abnormal ECG
--- NOTE | 2018-07-05 10:22 | CT ---
Date of service: 07/04/2018 PROCEDURE: CT Abdomen and Pelvis with contrast HISTORY: lower abdpain, diarrhea, with prev surgery COMPARISON: Abdomen pelvis CT without contrast 01/15/2017. TECHNIQUE: Following oral and intravenous contrast administration, a CT examination of the abdomen and pelvis performed from the domes of the diaphragms to the symphysis pubis with reformatted datasets provided not only axial but also sagittal and coronal series. Contrast dose: Omnipaque 300, 100 cc Radiation dose: Total exam DLP = 963.76 mGy-cm. This CT exam was performed using one or more of the following dose reduction techniques: Automated exposure control, adjustment of the mA and/or kV according to patient size, and/or use of iterative reconstruction technique. FINDINGS: LOWER THORAX: Small hiatal hernia is identified. No pleural pericardial effusion. LIVER: Liver appears to extend below lower pole right kidney without focal mass by compatible mild hepatomegaly. GALLBLADDER AND BILE DUCTS: Prior cholecystectomy. PANCREAS: Unremarkable. No gross lesion or ductal dilatation. SPLEEN: Splenomegaly is identified up to 16.0 cm. ADRENALS: Unremarkable. No mass. KIDNEYS AND URETERS: Unremarkable. No hydronephrosis. No solid mass. VASCULATURE: No abdominal aortic aneurysm in the interval. A vena cava filter again noted in situ at the infrarenal inferior vena cava. BOWEL: Post gastric bypass changes are again identified. Stomach is collapsed not well evaluated. No bowel obstruction or marked small bowel mural thickening is evident. Large-bowel does not appear significantly changed in the interval with collapse of the sigmoid segment in variable portion is difficult to evaluate. APPENDIX: Appendix not identified. No CT evidence of appendicitis. PERITONEUM: There 2 tiny, nearly adjacent ventral abdominal hernias supraumbilical in location with sub cm necks containing only mesenteric fat and no bowel. No free fluid. No free air. LYMPH NODES: Unremarkable. No enlarged lymph nodes. BLADDER: Bladder stable in appearance but is not well distended. Cystitis is difficult to evaluate in this patient potentially. Clinically correlate further. REPRODUCTIVE: Unremarkable. BONES: No acute fracture. OTHER FINDINGS: None. IMPRESSION: 1. No definite acute abdominal or pelvic findings as discussed above. 2. Prior cholecystectomy. 3. Stable hepatic splenomegaly. 4. Stable urinary bladder evaluation is limited by lack of distention. Consider possibility of cystitis though this is not definite. 5. 2 tiny supraumbilical hernias are again identified containing only minimal fat and no bowel. Additional findings as discussed above. Concordant preliminary report from [facility], 07/04/2018.
== END 2018-07-04 23:11 | disposition home or self-care (01) ==
LOC: H.ER 17:23
DX: R10.9 Unspecified abdominal pain (principal); N30.90 Cystitis, unspecified without hematuria; I10 Essential (primary) hypertension; Z86.718 Personal history of other venous thrombosis and embolism; Z90.49 Acquired absence of other specified parts of digestive tract; Z95.5 Presence of coronary angioplasty implant and graft; Z86.59 Personal history of other mental and behavioral disorders; E11.9 Type 2 diabetes mellitus without complications; Z79.84 Long term (current) use of oral hypoglycemic drugs; F17.200 Nicotine dependence, unspecified, uncomplicated; I25.2 Old myocardial infarction
CPT/HCPCS: 71045; 74177; 80053; 81003; 82803; 83690; 85025; 85610; 85730; 86850; 86900; 93005; 96374; 96376; 99283; J2270; J7030; Q9966; Q9967